=== PATIENT | female | born 1945 | race Caucasian/White ===

== ENCOUNTER 2017-08-06 10:56 | Outpatient (CLI) | payer MEDICARE, BC ==
--- NOTE | 2017-08-06 13:36 | RAD ---
LEFT ANKLE THREE VIEWS: HISTORY: Left ankle pain, injury. FINDINGS/IMPRESSION: The ankle mortise is maintained. Soft tissue swelling is present. No acute fracture or dislocation is identified. A small plantar calcaneal spur is present. POS: OFF
== END 2017-08-06 10:57 | disposition home or self-care (01) ==
LOC: MADRAD 10:56
PROVIDERS: ATTEND General Practice
DX: M25.572 Pain in left ankle and joints of left foot (principal); M79.89 Other specified soft tissue disorders; M77.32 Calcaneal spur, left foot